=== PATIENT | male | born 1970 | race African-American/Black ===

== ENCOUNTER 2021-12-19 20:26 | Emergency (ER) | payer MEDICAID, OTHER ==
[~2021-12-19] VITALS: Ht 190.5 cm; Wt 115.7 kg
--- NOTE | 2021-12-19 20:55 | NUR ---
PT BIBS. C/O R SIDE CP RADIATING TO BACK X 2 MONTH INTERMITENT. THINKS IT MIGHT BE GALL BLADDER PROBLEM. PT A/O, RR EVEN AND UNLABORED, NO SOB NOTED. PT CONNECTED TO MONITOR.
--- NOTE | 2021-12-19 20:59 | NUR ---
BLOOD SENT TO LAB
[2021-12-19 21:37] LABS: BASOPHILS % (AUTO) 0.5 % (0.0-2.0); EOSINOPHILS % (AUTO) 1.2 % (0.0-6.0); HEMATOCRIT 46 % (39-51); HEMOGLOBIN 15.2 g/dL (13.5-17.5); LYMPHOCYTES # (AUTO) 2.7 K/uL (0.8-4.8); MEAN CORPUSCULAR HGB CONC 33 g/dl (31.0-36.0); MEAN CORPUSCULAR VOLUME 85 fL (80-96); MONOCYTES # (AUTO) 0.5 K/uL (0.1-1.30); MONOCYTES % (AUTO) 6.2 % (2.0-12.0); NEUTROPHILS % (AUTO) 60.1 % (43.0-81.0); PLATELET COUNT (AUTO) 252 K/uL (150-450); RED BLOOD CELL COUNT(AUTO) 5.49 MIL/uL (4.5-6.0); WHITE BLOOD COUNT (AUTO) 8.3 K/uL (4.3-11.0)
[2021-12-19 21:55] LABS: CALCIUM, SERUM 8.8 mg/dL (8.5-10.1); CARBON DIOXIDE 31 mmol/L (21-32); CHLORIDE 103 mmol/L (98-107); CREATININE 1.4 mg/dL (0.6-1.3); GLUCOSE 93 mg/dL (74-106); POTASSIUM 3.9 mmol/L (3.5-5.1); SODIUM SERUM 137 mmol/L (136-145); UREA NITROGEN, BLOOD 10 mg/dL (7-18)
[2021-12-19 22:00] LABS: ALANINE AMINOTRANSFERASE 34 U/L (12-78); ALBUMIN 4.2 g/dL (3.4-5.0); ALKALINE PHOSPHATASE 102 U/L (46-116); ASPARTATE AMINOTRANSFERASE 18 U/L (15-37); BILIRUBIN,DIRECT 0.1 mg/dL (0.0-0.2); BILIRUBIN,TOTAL 0.4 mg/dL (0.2-1.0)
--- NOTE | 2021-12-19 23:15 | NUR ---
PT DISCHARGED HOME IN STABLE CONDITION. WRITTEN AND VERBAL AFTERCARE INSTRUCTIONS PROVIDED AND PT VERBALIZES UNDERSTANDING OF INSTRUCTIONS. IV LINE REMOVED AND PT AMBULATED OUT OF ER WITH STEADY GAIT.
[2021-12-19 23:19] VITALS: BP 137/82
== END 2021-12-19 23:19 | disposition home or self-care (01) ==
LOC: ER 20:36
DX: R07.89 Other chest pain (principal)
CPT/HCPCS: 36415; 71045-TC; 80048-TC; 80076-TC; 84484-TC; 85025-TC